=== PATIENT | female | born 1980 | race African-American/Black ===

== ENCOUNTER 2016-04-29 10:06 | Emergency (ER) | payer OTHER ==
[~2016-04-29] VITALS: Ht 167.6 cm; Wt 111.1 kg
[~2016-04-29 10:06] MED LIST: FLOMAX0.4 MG ORAL; IBUPROFEN600 MG ORAL; NORCO 5-325 TA1 EACH ORAL
[2016-04-29] MEDS ORDERED: NKM (10:09)
[2016-04-29] MEDS ORDERED: Albuterol ud Inhalation HHN ONE (10:15)
[2016-04-29] MEDS ORDERED: Ipratropium 0.02% Inh Soln 2.5ml UD HHN ONE (10:15)
[2016-04-29] MEDS ORDERED: LORazepam Inj 2mg/ml 1ml IV ONE (10:15)
[2016-04-29 11:54] VITALS: BP 126/80
--- NOTE | 2016-04-29 11:56 | Diagnostic Imaging Report ---
Indication: Chest pain Technique: One view of the chest Comparison: none Findings: Lungs and pleural spaces are clear. Heart size is normal. Impression: No acute process
[2016-04-29] MEDS ORDERED: LORazepam 0.5mg tab ORAL ONE (12:30)
[2016-04-29 13:25] LABS: EOSINOPHILS % (AUTO) 0.6 % (0.0-3.0); LYMPHOCYTES % (AUTO) 16.1 % (20.0-45.0); MEAN CORPUSCULAR HEMOGLOBIN 31.5 PG (27.0-31.0); MEAN CORPUSCULAR HGB CONC 33.1 G/DL (32.0-36.0); MEAN CORPUSCULAR VOLUME 95 FL (80-99); MEAN PLATELET VOLUME 6.5 FL (6.5-10.1); NEUTROPHILS % (AUTO) 77.3 % (45.0-75.0); PLATELET COUNT 242 K/UL (150-450); RED CELL DISTRIBUTION WIDTH 12.5 % (11.6-14.8); WHITE BLOOD COUNT 8.6 K/UL (4.8-10.8)
[2016-04-29 13:34] LABS: TROPONIN I < 0.30 ng/mL (<=0.30)
[2016-04-29 13:37] LABS: ALANINE AMINOTRANSFERASE 16 U/L (3-33); ALBUMIN/GLOBULIN RATIO 1.1 (1.0-2.7); ANION GAP 15 (5-15); ASPARTATE AMINO TRANSFERASE 18 U/L (5-40); CALCIUM 9.3 mg/dL (8.6-10.2); CARBON DIOXIDE 25 mEQ/L (20-30); CHLORIDE 101 mEQ/L (98-107); CREATININE 0.9 mg/dL (0.5-0.9); GLOMERULAR FILTRATION RATE > 60 mL/min (>60); HEMOLYSIS 10; POTASSIUM 4.4 mEQ/L (3.4-4.9); SODIUM 141 mEQ/L (135-145); TOTAL PROTEIN 7.2 g/dL (6.6-8.7)
[2016-04-29 13:40] LABS: PROTHROMBIN TIME 10.3 SEC (9.30-11.50)
[2016-04-29 13:54] VITALS: BP 121/76
[2016-04-29 14:29] VITALS: BP 121/76
--- NOTE | 2016-04-29 14:32 | Emergency Room Report ---
History of Present Illness General Chief Complaint: General Complaint Source: Patient Present Illness HPI Patient presents with severe dyspnea. 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 She claims she didn't mix any other chemicals at that time. She's had this happen one time before. After the dyspnea, she had some minimal chest pain - pleuritic, non-radiating. Also vomited with some nausea. Tingling of hands and around mouth. No fever or productive cough. No sore throat. Anxious with this and some dizziness. Transported by paramedics. No h/o clots, leg swelling. Some stress in life, but minimal. No hematemesis, melena, diarrhea. No dysuria, hematuria. Allergies: Coded Allergies: PENICILLINS (Verified Allergy, Unknown, 04/24/15) Patient History Past Medical History: see triage record Social History: Reports: smoking - prior Social History Narrative with daughter at home Last Menstrual Period: unknown Reviewed Nursing Documentation: PMH: Agreed, PSxH: Agreed Nursing Documentation-PMH Past Medical History: No Stated History Hx Hypertension: Yes Hx Gastrointestinal Problems: Yes - kidney stone Review of Systems All Other Systems: negative except mentioned in HPI Physical Exam Vital Signs Date Time Temp Pulse Resp B/P Pulse Ox O2 Delivery O2 Flow Rate FiO2 04/29/16 10:05 98.1 100 20 126/80 98 Room Air 04/29/16 10:25 40 Sp02 EP Interpretation: reviewed, normal General Appearance: GCS 15, moderate distress, obese Head: normocephalic, atraumatic Eyes: bilateral eye PERRL, bilateral eye conjunctivae pale ENT: moist mucus membranes Neck: supple Respiratory: chest non-tender, lungs clear, normal breath sounds, respiratory distress Cardiovascular #1: regular rate, rhythm Cardiovascular #2: 2+ radial (R) Gastrointestinal: normal inspection, normal bowel sounds, non tender, no mass, non-distended, overweight Musculoskeletal: back normal, gait/station normal, normal range of motion, non- tender, no calf tenderness, Jose Daniel's Sign negative Neurologic: alert, oriented x3, motor strength/tone normal, DTRs symmetric, sensory intact, other - initially nodding yes and no only Psychiatric: anxious Skin: normal inspection, warm/dry Medical Decision Making Diagnostic Impression: Primary Impression: Dyspnea Qualified Codes: R06.02 - Shortness of breath Additional Impression: Hyperventilation syndrome ER Course Patient presents with resp distress and dyspnea. Ddx: AMI, PE, GERD/spasm, hyperventilation, chemical reaction amongst others. Emergent evaluation with labs, EKG, CXR. Treatment with albuterol, ativan and zofran. Multiple attempts at IV unsuccessful. Patient improved with HHN and more calm. Meds given PO. Labs drawn. Labs, EKG and CXR unremarkable. Symptoms resolved completely with treatment. Lungs clear. Discussed need for urgent evaluation by PMD as well as medical treatment plan. Patient stable for outpatient observation and treatment. Laboratory Tests Test 04/29/16 11:30 04/29/16 12:50 Urine HCG, Qualitative Negative Urine Opiates Screen Negative (NEGATIVE) Urine Barbiturates Screen Negative (NEGATIVE) Phencyclidine (PCP) Screen Negative (NEGATIVE) Urine Amphetamines Screen Negative (NEGATIVE) Urine Benzodiazepines Screen Negative (NEGATIVE) Urine Cocaine Screen Negative (NEGATIVE) Urine Marijuana (THC) Screen Positive (NEGATIVE) H White Blood Count 8.6 K/UL (4.8-10.8) Red Blood Count 4.50 M/UL (4.20-5.40) Hemoglobin 14.2 G/DL (12.0-16.0) Hematocrit 42.9 % (37.0-47.0) Mean Corpuscular Volume 95 FL (80-99) Mean Corpuscular Hemoglobin 31.5 PG (27.0-31.0) H Mean Corpuscular Hemoglobin Concent 33.1 G/DL (32.0-36.0) Red Cell Distribution Width 12.5 % (11.6-14.8) Platelet Count 242 K/UL (150-450) Mean Platelet Volume 6.5 FL (6.5-10.1) Neutrophils (%) (Auto) 77.3 % (45.0-75.0) H Lymphocytes (%) (Auto) 16.1 % (20.0-45.0) L Monocytes (%) (Auto) 5.0 % (1.0-10.0) Eosinophils (%) (Auto) 0.6 % (0.0-3.0) Basophils (%) (Auto) 1.0 % (0.0-2.0) Prothrombin Time 10.3 SEC (9.30-11.50) Prothrombin Time INR 1.0 (0.9-1.1) PTT 25 SEC (23-33) Sodium Level 141 mEQ/L (135-145) Potassium Level 4.4 mEQ/L (3.4-4.9) Chloride Level 101 mEQ/L (98-107) Carbon Dioxide Level 25 mEQ/L (20-30) Anion Gap 15 (5-15) Blood Urea Nitrogen 14 mg/dL (7-23) Creatinine 0.9 mg/dL (0.5-0.9) Estimate Glomerular Filtration Rate > 60 mL/min (>60) Glucose Level 95 mg/dL (74-106) Calcium Level 9.3 mg/dL (8.6-10.2) Total Bilirubin 0.2 mg/dL (0.0-1.2) Aspartate Amino Transferase (AST) 18 U/L (5-40) Alanine Aminotransferase (ALT) 16 U/L (3-33) Alkaline Phosphatase 62 U/L (35-104) Total Creatine Kinase 97 U/L (26-140) Troponin I < 0.30 ng/mL (<=0.30) Pro-B-Type Natriuretic Peptide 20 pg/mL (0-125) Total Protein 7.2 g/dL (6.6-8.7) Albumin 3.9 g/dL (3.5-5.2) Globulin 3.3 g/dL Albumin/Globulin Ratio 1.1 (1.0-2.7) EKG Diagnostic Results Rate: tachycardiac ST Segments: no acute changes Rhythm Strip Diag. Results EP Interpretation: yes Rhythm: no PVC's, no ectopy, other - ST Chest X-Ray Diagnostic Results EP Interpretation: Yes Findings: no consolidation, no effusion, no pneumothorax, no acute cardiopulmonary disease Number of Views: 1 Last Vital Signs Date Time Temp Pulse Resp B/P Pulse Ox O2 Delivery O2 Flow Rate FiO2 04/29/16 14:29 98.1 86 20 121/76 100 Room Air 04/29/16 11:54 40 Status: improved Disposition: HOME, SELF-CARE Condition: Improved Scripts Lorazepam* (ATIVAN*) 0.5 Mg Tablet 0.5 MG ORAL THREE TIMES A DAY Y for anxiety, #6 TAB Prov: Yogi Bone M.D. 04/29/16 Albuterol Sulfate* (ALBUTEROL SULFATE MDI*) 8.5 Gm Hfa.aer.ad 2 PUFF INH Q6H Y for wheezing, #1 EA 0 Refills Prov: Yogi Bone M.D. 04/29/16 Referrals: [employer],[facility] (PCP) Yogi Bone M.D. Apr 29, 2016 14:32
[2016-04-29] MEDS ORDERED: ALBUTEROL SULF8.5 GM INH (14:35)
[2016-04-29] MEDS ORDERED: ATIVAN0.5 MG ORAL (14:35)
--- NOTE | 2016-05-01 18:32 | Cardiology Report ---
APPROVED REPORT EKG Measurement Heart [id number] Sinus tachycardia Nonspecific T wave abnormality Abnormal ECG
== END 2016-04-29 14:39 | disposition home or self-care (01) ==
LOC: EDBD 10:06 → EMR 10:40
DX: R06.00 Dyspnea, unspecified (principal); F45.8 Other somatoform disorders; R07.9 Chest pain, unspecified; R11.2 Nausea with vomiting, unspecified; R42 Dizziness and giddiness; Z88.0 Allergy status to penicillin; F17.200 Nicotine dependence, unspecified, uncomplicated; I10 Essential (primary) hypertension; Z87.442 Personal history of urinary calculi; R00.0 Tachycardia, unspecified
CPT/HCPCS: 36415; 71010; 80053; 80300; 81025; 82550; 83880; 84484; 85025; 85610; 85730; 93005; 94640; 94664; 99284